=== PATIENT | male | born 1975 | race Caucasian/White ===

== ENCOUNTER → 2024-01-15 07:49 | Outpatient (REF) | payer BC, SELFPAY | LOC: HWRAD 07:49 | PROVIDERS: ATTENDING PHYSICIAN Family Medicine | DX: K82.4 Cholesterolosis of gallbladder (principal) | CPT/HCPCS: 76700 ==

== ENCOUNTER → 2024-03-04 07:46 | Outpatient (REF) | payer BC, SELFPAY | LOC: RAD 07:46 | PROVIDERS: ATTENDING PHYSICIAN Family Medicine | DX: G25.81 Restless legs syndrome (principal); N52.9 Male erectile dysfunction, unspecified | CPT/HCPCS: 93922 ==